=== PATIENT | female | born 2000 | race Caucasian/White ===

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

== ENCOUNTER 2018-03-04 16:47 | Emergency (ER) | payer MEDICAID ==
[2018-03-04 16:59] VITALS: BP 99/69
--- NOTE | 2018-03-04 17:22 | EDPHY ---
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 She has been rubbing her eyes. Today she was rubbing her left eye and noticed that it the weight of her eye was swollen. She presents concerned about this. She has also had sinus drainage and coughing and sneezing over the last 2-3 weeks. She has not taken any medications for this. [place] She wears glasses, no contact lenses. She does not have a foreign body sensation, aside from the swelling. Her eye is not painful. She does not feel that her vision is diminished. REVIEW OF SYSTEMS: A ten point review of systems was performed and is negative with the exception of the items mentioned in the HPI. Past medical history: Negative Past surgical history: Negative Social history: She lives with her mother. She has a summer job. She does not use tobacco products. General Appearance: Alert. Vital signs reviewed. Eyes: Visual Acuity: noted from Nurse's notes. Patient tells me that she could not do the visual acuity testing because she did not bring her glasses with her. Pupils:equal round and reactive to light EOMI Lids: Mild left lower lid edema. Skin: no proptosis, no periorbital erythema, no vesicles Conjunctivae: mild OS conjunctival injection, no discharge; OS chemosis Cornea: fluorescein exam not performed Anterior chamber:normal, no hyphema or hypopyon ENT, Mouth: Mucous membranes are moist, no oropharyngeal erythema or edema. Neck: No lymphadenopathy, supple. Respiratory: Lungs are clear to auscultation; no wheezes, rales, or rhonchi. Cardiovascular: Regular rate and rhythm; no murmur, rub, or gallop. Skin: Warm and dry, no rashes on exposed skin, normal color. Neurological: Alert and oriented. Moving all four extremities easily and equally. Psychiatric: Normal affect. - Personal History LMP (Females 10-55): Extended Cycle BCP/Inj Current Tetanus Diphtheria and Acellular Pertussis (TDAP): Unsure - Medical/Surgical History Hx Asthma: No Hx Chronic Respiratory Disease: No Hx Diabetes: No Hx Cardiac Disease: No Hx Renal Disease: No Hx Cirrhosis: No Hx Alcoholism: No Hx HIV/AIDS: No Hx Splenectomy or Spleen Trauma: No Other PMH: denies - Social History Smoking Status: Current every day smoker Constitutional: Initial Vital Signs Temperature (C) 37.5 C 03/04/18 16:56 Heart Rate 81 03/04/18 16:56 Respiratory Rate 16 03/04/18 16:56 Blood Pressure 99/69 L 03/04/18 16:56 O2 Sat (%) 96 03/04/18 16:56 O2 Delivery Mode Room Air Allergies/Adverse Reactions: No Known Allergies Allergy (Verified 03/04/18 16:55) Home Medications: Medication Instructions Recorded NK [No Known Home Meds] 03/04/18 Medical Decision Making ED Course/Re-evaluation: Signs and symptoms of seasonal allergies, which have been particularly severe this year. [place] I am recommending symptomatic treatment with an antihistamine, Flonase, and cold compresses on the left eye for her chemosis. I do not suspect foreign body, corneal abrasion, scleral laceration or other eye trauma, elevated IOP, ocular herpes. Departure - Departure Disposition: Home, Routine, Self-Care Clinical Impression: Chemosis of left conjunctiva, Environmental and seasonal allergies Condition: Good Instructions: Antihistamine (By mouth), Allergies (ED) Additional Instructions: I think that your symptoms are all related to seasonal allergies. Try taking regular doses of an antihistamine--benadryl (will make you sleepy) or Claritin (won't make you drowsy). Follow the dosing instructions on the package. Begin using Flonase nasal spray per the directions (twice daily). You can buy these medications over the counter. Use a cold compress on your left eye--try not to rub or itch your eyes. I am referring you to [facility], if needed, and to a primary care doctor. Referrals: Rocky Sanchez MD [Medical Doctor] - As per Instructions
== END 2018-03-04 17:33 | disposition home or self-care (01) ==
LOC: CED 16:47
DX: H11.422 Conjunctival edema, left eye (principal); J30.2 Other seasonal allergic rhinitis; F17.200 Nicotine dependence, unspecified, uncomplicated